=== PATIENT | male | born 1990 | race Two or more races ===

== ENCOUNTER 2019-04-05 22:51 | Emergency (ER) | payer MEDICAID ==
[~2019-04-05] VITALS: Ht 172.7 cm; Wt 84.0 kg
[2019-04-05] MEDS ORDERED: IPRATROPIUM BROMIDE (0.02%) 0.5MG/2.5ML NEB HHN STA (23:12)
[2019-04-05] MEDS ORDERED: ALBUTEROL (0.083%) 2.5MG/3ML NEB HHN STA (23:12)
[2019-04-05] MEDS ORDERED: KETOROLAC 30MG/ML VIAL IV ONE (23:15)
[2019-04-06 00:10] LABS: BASOPHILS % 0.2 % (0.0-2.0); EOSINOPHILS % 3.9 % (0.0-5.0); HEMATOCRIT. 46.8 % (42.0-52.0); HEMOGLOBIN. 15.9 g/dL (14.0-18.0); LYMPHOCYTES % 13.7 % (20.0-50.0); MEAN CORPUSCULAR HEMOGLOBIN 30.7 pg (28.0-32.0); MEAN CORPUSCULAR VOLUME 90.5 fL (80.0-94.0); MEAN PLATELET VOLUME 10.3 fl (7.4-10.4); MONOCYTES % 5.9 % (2.0-8.0); NEUTROPHILS % 76.3 % (40.0-76.0); PLATELET 174 x1000/uL (130-400); RED BLOOD CELL COUNT 5.18 mill/uL (4.7-6.1); RED CELL DISTRIBUTION WIDTH 12.7 % (11.6-14.6)
[2019-04-06 02:09] VITALS: BP 107/59
== END 2019-04-06 02:23 | disposition home or self-care (01) ==
LOC: ER 22:51
DX: J06.9 Acute upper respiratory infection, unspecified (principal); J40 Bronchitis, not specified as acute or chronic
CPT/HCPCS: 36415; 71045; 85025; 94644; 96374; 99285; J1885; J7611; Z7610